=== PATIENT | female | born 1985 | race Caucasian/White ===

== ENCOUNTER 2020-12-03 12:58 | Outpatient (REF) | payer SELFPAY ==
[2020-12-03 16:06] LABS: Syphilis Screen Nonreactive (Nonreactive)
[2020-12-04 05:00] LABS: HIV AB/AG Nonreactive (Nonreactive); HIV Num 1 0.23 S/CO (0.00-0.99)
[2020-12-04 05:08] LABS: HBsAGNum1 0.14 S/CO (0.00-0.99); Hepatitis B Surface Antigen Negative (Negative); ~HepC Num1 0.17 S/CO (0.00-0.79); ~Hepatitis C Antibody Nonreactive (Nonreactive)
[2020-12-04 14:17] LABS: C. trachomatis RNA TMA NOT DETECTED (NOT DETECTED); N. gonorrhoeae RNA TMA NOT DETECTED (NOT DETECTED)
== END 2020-12-03 12:59 | disposition home or self-care (01) ==
LOC: HO.LAB 12:58
PROVIDERS: PCP Nurse Practitioner Family; Visit Provider Advanced Practice Midwife
DX: Z01.419 Encounter for gynecological examination (general) (routine) without abnormal findings (principal); Z20.2 Contact with and (suspected) exposure to infections with a predominantly sexual mode of transmission
CPT/HCPCS: 36415; 86780; 86803; 87340; 87389; 87491; 87591

== ENCOUNTER 2021-07-11 14:31 | Emergency (ER) | payer OTHER, SELFPAY ==
[2021-07-11 14:58] VITALS: BP 127/70; PULSE 81; RESP 18; TEMP 36.8; O2SAT 100; BMI 37.8
[2021-07-11 15:52] LABS: COVID-19 Test Negative (Negative)
--- NOTE | 2021-07-11 16:42 | ED_ITS ---
HPI - General Adult General Chief complaint: Upper Respiratory Symptoms Stated complaint: flu like symptoms Time Seen by Provider: 07/11/21 16:42 Source: patient Limitations: no limitations History of Present Illness HPI narrative: Patient presents with a 2 day history of body aches cough congestion. Patient received her 1st vaccination for COVID-19 3 weeks prior was scheduled to get her 2nd dose today but with symptoms did not get it in at this time. 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 Patient denies Tobacco history does have a history of asthma no recent travel history nausea vomiting chest pain. Cough is nonproductive. Lots of nasal congestion. Related Data Previous Rx's Medication Instructions Recorded albuterol sulfate 90 mcg/actuation 2 puff INHALATION Q6H PRN #6.7 g 07/11/21 aerosol inhaler (ProAir HFA) Allergies Allergy/AdvReac Type Severity Reaction Status Date / Time No Known Allergies Allergy Verified 07/11/21 14:58 Review of Systems Constitutional: Constitutional: Reports body ache(s), Denies chills, Denies fever(s), Denies headache(s) and Reports malaise ENT: Denies headache(s), Reports nasal congestion, Reports nasal discharge and Reports sore throat Cardiovascular: Cardiovascular: Denies chest pain and Denies dyspnea Respiratory: Respiratory: Denies dyspnea Gastrointestinal: Gastrointestinal: Denies diarrhea, Denies nausea and Denies vomiting Musculoskeletal: Musculoskeletal: Reports no additional musculoskeletal complaints Integumentary/Breasts: Skin/Breast: Denies rash Neurologic: Denies headache(s) [facility] Past Medical History Attestation statement: The following information was validated with the patient. Medical History Abnormal Pap smear of cervix Asthma Surgical History H/O hand surgery History of loop electrical excision procedure (LEEP) Family History Family History Father Colon cancer Maternal Grandmother History of breast cancer Social History Social History Alcohol intake: current Alcohol intake frequency: a few times a month Advance Directives: No Advance Directives Information Provided: No Patient : No Sexual orientation: Straight/Heterosexual Physical Exam Vital Signs: Vital Signs: Last Vital Signs Temp 98.2 F 07/11/21 14:58 Pulse 81 07/11/21 14:58 Resp 18 07/11/21 14:58 BP 127/70 07/11/21 14:58 Pulse Ox 100 07/11/21 14:58 Body Mass Index 37.8 vital signs have been reviewed as normal and appeared to be correct. Blood pressure normal. Heart rate normal. Respiration rate normal. Temperature normal. Oxygen saturation normal. Appearance: Alert. Oriented X3. No acute distress. Head: Normal external exam. Normocephalic. Atraumatic. Eyes: PERRLA. EOMI. Conjunctiva and sclera normal ENT: Pharynx normal. Uvula midline. Moist mucous membranes. Neck: Soft full range of motion, no JVD CVS: Heart regular rate and rhythm no murmurs and rubs Respiratory: Breath sounds are clear to auscultation bilaterally. No accessory muscle use noted. Abdomen: Soft nontender no rebound or guarding positive bowel sounds Back:Full range of motion noted. Skin: Skin warm and dry. Normal skin color. No rashes noted Extremities: No lower extremity edema. Extremities exhibit normal range of motion. Extremities nontender. Neuro: Oriented X 3. No motor deficit. No sensory deficit. Reflexes normal. Course Course Course Narrative: COVID-19 URI Viral syndrome COVID-19 screening Pharyngitis COVID-19 swab obtained is negative at this time O2 sat is 100% on room air patient instructed that this is not a PCR test and she may need to be retested in 2-3 days if symptoms continue. Symptoms likely secondary to viral URI. Medical Decision Making Lab Data Labs: Lab Results 07/11/21 Range/Units 15:29 COVID-19 ([place]) Negative (Negative) COVID-19 Clin Com See Note Discharge Plan Discharge Clinical Impression: Upper respiratory infection Qualifiers: URI type: unspecified viral URI Qualified Code(s): J06.9 - Acute upper respi ratory infection, unspecified Patient Disposition: Home, Self-Care Instructions: Upper Respiratory Infection (ED) Additional Instructions: If Symptoms continue in 2-3 days it is advised to get a PCR COVID-19 test Increase fluids rest Follow-up with your PCP Prescriptions: New albuterol sulfate [ProAir HFA] 90 mcg/actuation HFA aerosol inhaler 2 puff inhalation Q6H PRN (Reason: shortness of breath or wheezing) Qty: 6.7 RF: 0 Stand Alone Forms: Work/School Release
== END 2021-07-11 17:23 | disposition home or self-care (01) ==
PROVIDERS: Emergency Provider Emergency Medicine Emergency Medical Services; PCP Nurse Practitioner Family
DX: J06.9 Acute upper respiratory infection, unspecified (principal); M79.10 Myalgia, unspecified site; R05 Cough; Z20.822 Contact with and (suspected) exposure to COVID-19; Z79.899 Other long term (current) drug therapy
CPT/HCPCS: 36415; 87635; 99283

== ENCOUNTER 2025-04-30 20:54 | Emergency (ER) | payer OTHER, SELFPAY ==
--- NOTE | ~2025-04-30 | XR_ITS ---
CLINICAL HISTORY: pain injury 3 view bilateral ankles Comparison: None provided Findings: Small avulsion fracture at the tip of the right medial malleolus which is of indeterminate age. Otherwise no right ankle acute fractures. No acute fractures of left ankle. No dislocation bilaterally. No significant degenerative changes or erosions. Left plantar calcaneal enthesophyte. Bilateral ankle soft tissue swelling. No ankle joint effusion. IMPRESSION: 1. Small avulsion fracture at tip of right medial malleolus which is of indeterminate age. 2. Otherwise no fractures and no dislocation. This document has been electronically signed by: Corie Webb MD on 04/30/2025 23:11:14
[2025-04-30 21:53] VITALS: BP 144/67; PULSE 83; RESP 18; TEMP 36.7; O2SAT 99; BMI 420.3
--- NOTE | 2025-05-01 00:48 | ED_ITS ---
HPI - General Adult General Chief complaint: Extremity Injury, Lower Stated complaint: foot pain possible fracture Time Seen by Provider: 05/01/25 00:47 Source: patient Mode of arrival: ambulatory Limitations: no limitations History of Present Illness ED Provider: Tiffanie Fajardo PA-C HPI narrative: Patient is a 39 year old assigned female at with a history of asthma presenting to the emergency department today with bilateral ankle swelling / pain and left heel pain. Patient states that whenever she steps on her left heel she has pain that radiates into her left foot and into her lower leg. Patient states that she works on her feet all day and is now also having right ankle pain / swelling. Patient denies any dizziness, lightheadedness, abdominal pain, nausea, vomiting, fever, chills, blurry vision, double vision, loss of vision, chest pain, difficulty breathing, shortness of breath, back pain, night sweats, pain with urination, increased urinary frequency, increased urinary urgency, blood in her urine or stool, syncope or a near syncopal episode, recent trauma or falls, bowel incontinence, bladder incontinence, or any other complaints at this time. Relieving factors: none Exacerbating factors: none Associated symptoms: denies other symptoms Treatments prior to arrival: none Related Data Previous Rx's ?Medication ?Instructions ?Recorded albuterol sulfate 90 mcg/actuation 2 puff inhalation Q 6H PRN 07/11/21 aerosol inhaler (ProAir HFA) shortness of breath or wh eezing #6.7 grams ketorolac 10 mg tablet 10 mg PO Q8H PRN pain 4 days #10 05/01/25 tabs Allergies Allergy/AdvReac Type Severity Reaction Status Date / Time No Known Allergies Allergy Verified 04/30/25 21:56 Review of Systems Constitutional: Constitutional: Reports no additional constitutional complaints, Denies chills, Denies fever(s) and Denies night sweats Eyes: Eyes: Reports no additional eye complaints, Denies blurry vision, Denies change in vision, Denies diplopia, Denies eye discharge, Denies loss of vision and Denies eye pain ENT: Denies dizziness Cardiovascular: Cardiovascular: Reports no additional cardiovascular complaints, Denies chest pain, Denies lightheadedness, Denies Loss of Consciousness and Denies dyspnea Respiratory: Respiratory: Reports no additional respiratory complaints and Denies dyspnea Gastrointestinal: Gastrointestinal: Reports no additional gastrointestinal complaints, Denies abdominal pain, Denies melena, Denies hematochezia, Denies change in bowel habits and Denies change in stool character Genitourinary: Genitourinary: Denies hematuria, Denies urinary frequency, Denies dysuria, Denies urinary incontinence, Denies urinary hesitancy and Denies urinary urgency Musculoskeletal: Musculoskeletal: Reports no additional musculoskeletal complaints, Denies numbness and Denies tingling Comments: Right ankle pain / swelling Left ankle pain / swelling Left heel pain Neurologic: Denies dizziness, Denies loss of vision, Denies numbness and Denies tingling Psychiatric: Psychiatric: Reports no additional psychiatric complaints Endocrine: Endocrine: Reports no additional endocrine complaints Hematologic/Lymphatic: Hematologic/Lymphatic: Reports no additional hematologic/lymphatic complaints Allergic/Immunologic: Allergic/Immunologic: Reports no additional allergic/immunologic complaints PMF Past Medical History Attestation statement: The following information was validated with the patient. Source: old records reviewed and nursing notes reviewed Medical History Asthma Abnormal Pap smear of cervix Surgical History H/O hand surgery History of loop electrical excision procedure (LEEP) Family History Family History Father Colon cancer Maternal Grandmother History of breast cancer Social History Social History Alcohol intake: current Alcohol intake frequency: a few times a month Advance Directives: No Advance Directives Information Provided: No Do you have a plan to hurt others: No Plan Sexual orientation: Straight/Heterosexual Physical Exam ED Vital Signs: Vital Signs - 24 hr 04/30/25 21:53 Temperature 98.1 F Pulse Rate 83 Respiratory Rate 18 Blood Pressure 144/67 H Pulse Oximetry 99 Oxygen Delivery Method Room Air BMI result Body Mass Index 420.3 Const General: cooperative, no acute distress, alert and awake Nutritional Appearance: well nourished Orientation/consciousness: patient oriented x3 HENMT Head: Yes normal to inspection and Yes atraumatic Ears: hearing grossly normal bilaterally and external ears normal General nose exam: Normal external nose present, no nasal discharge noted and no epistaxis Face and sinus: Yes normal facial exam, No abrasion and No laceration Mouth: Normal oral and palatal mucosa present, no drooling and no muffled voice Eyes General: appearance normal, both eyes and all related structures Periorbital: periorbital findings normal Eyelids: Yes eyelids normal Conjunctivae: conjunctivae normal Pupils: Equal, round and reactive pupils present EOM: EOMs intact bilaterally Neck Neck: Yes normal visual inspection, Yes full ROM and Yes no lymphadenopathy Resp Effort & Inspection: normal respiratory effort and able to speak in complete sentences Neuro General: patient oriented x3, moves all extremities and CN's II-XI intact bilaterally Cranial nerves: Yes Equal, round and reactive pupils present Cognition (Neuro): normal cognition Extrem Other: Bilateral ankle swelling Pain with palpation of the left heel General: Yes full ROM and Yes capillary refill normal Psych Appearance: grossly normal Mental Status: mental status grossly normal Affect: normal affect Attitude: cooperative Thought process: Normal thought process present Thought content: Normal thought content present Insight: Good insight present (Psych) Medications Administered Discontinued Medications Generic Name Dose Route Start Last Admin Trade Name Mara PRN Reason Stop Dose Admin Ketorolac Tromethamine 15 mg 05/01/25 01:00 05/01/25 01:29 Ketorolac Tromethamine 15 Mg/Ml Vial IM 05/01/25 01:01 15 mg ONCE ONE Administration Procedures Orthopedic Splinting/Casting Injury #1: Side: right Lower Extremity Injury Location: ankle Lower Extremity Immobilizer: boot orthosis Injury #2: Side: left Lower Extremity Injury Location: foot Lower Extremity Immobilizer: boot orthosis Medical Decision Making Medical Decision Making MDM Narrative: Patient is a 39 year old assigned female at with a history of asthma presenting to the emergency department today with bilateral ankle swelling / pain and left heel pain. Patient's physical exam was as noted in the physical exam portion of this note. Patient's bilateral ankle x-rays showed a right medial malleolus ankle fracture of undetermined age and the left was negative for any acute process. I am suspicious the right avulsion fx is old and found incidentally given her new swelling however, given the findings and her pain, w ill place her in a tall walking boot. Patient's left heel pain is most consistent with plantar fasciitis for which I will also place that foot in a walking boot. I explained my physical exam findings as well as all test results to the patient. I answered all questions asked by the patient. Patient's right foot was placed in a tall walking boot, per procedure note, without incident. Patient's left foot was placed in a short walking boot, per procedure note, without incident. Patient was given IM Toradol. Patient was originally prescribed naproxen however, she stated that she did not want that and would rather have PO Toradol. I stressed the importance of the patient taking her medication as directed (either prescribed or as the over the counter packaging recommends). I stressed the importance of the patient following up with her primary care provider and the orthopaedic team. I stressed the importance of the patient returning to the emergency department immediately if her symptoms were to worsen or if she were to develop any dizziness, shortness of breath, difficulty breathing, chest pain, blurry vision, loss of vision, nausea, vomiting, abdominal pain, fever, chills, back pain, or any other complaints. Patient verbalized agreement and understanding with this treatment plan and discharge. Differential Diagnosis Differential Diagnoses: The differential diagnosis associated with the presentation includes Right avulsion fracture of the ankle Left plantar fasciitis Bilateral ankle swelling Bilateral ankle pain Admission/Observation Consideration of admission/observation: Escalation of care including admission/observation considered Patient would have been admitted to the hospital had her work up had any findings where hospital admission was appropriate and her clinical presentation warranted hospital admission. Independent Interpretation I performed an independent interpretation of an: Plain X-Ray Interpretation: My interpretation is in agreement with the radiologist's impression of these imaging studies. CLINICAL HISTORY: pain injury 3 view bilateral ankles Comparison: None provided Findings: Small avulsion fracture at the tip of the right medial malleolus which is of indeterminate age. Otherwise no right ankle acute fractures. No acute fractures of left ankle. No dislocation bilaterally. No significant degenerative changes or erosions. Left plantar calcaneal enthesophyte. Bilateral ankle soft tissue swelling. No ankle joint effusion. IMPRESSION: 1. Small avulsion fracture at tip of right medial malleolus which is of indeterminate age. 2. Otherwise no fractures and no dislocation. This document has been electronically signed by: Corie Webb MD on 04/30/2025 23:11:14 Dictated By: Corie Webb MD Signed By: Electronically signed by Corie Webb MD 04/30/25 [id number] Radiology Impression Discussion of test interpretation with radiology: I have reviewed the radiologist's reading. Prescription Management I considered prescription management with: Pain Medication (patient prescribed pain medication) Discharge Plan Discharge Clinical Impression: Plantar fasciitis, Ankle fracture Patient Disposition: Home, Self-Care Instructions: Ankle Fracture (DC), Plantar Fasciitis (ED), Plantar Fasciitis Exercises (ED) Additional Instructions: Your left foot is suffering from plantar fasciitis and while evaluating your right ankle we found a small (likely old) avulsion fracture / break. I've provided you with walking boots for comfort. Follow up with your primary care provider and the orthopedic team. Return to the emergency department immediately if your symptoms worsen or if you develop any numbness, tingling, dizziness, shortness of breath, difficulty breathing, chest pain, blurry vision, loss of vision, nausea, vomiting, abdominal pain, fever, chills, back pain, or any other complaints. Please see the information below about our Patient Portal. If you are not yet enrolled in the [facility] Patient Portal, you will receive an enrollment email invitation following your visit to any [facility] setting. You may also self-enroll in the Patient Portal by visiting our website: [email or web address] The following information is required to access the Patient Portal: - Your [facility] Medical Record Number - Your personal home email address (must match what is in your electronic medical record, Registration staff can assist with this) - Name - Date of Capabilities of the Patient Portal: - Message some providers - View upcoming appointments - Access your health summary, medical history, and visit history - View current conditions and allergies - View procedure and lab results - View your medications, including guidelines, side effects, and precautions - Complete pre-appointment questionnaires requested by your provider - Ready summary reports of your office visits and procedures To access the Patient Portal Mobile Julio, follow these directions: - Search [employer] in the Julio Store or Google Play Store - Download the Julio - Search for [facility] - Enter your login/password Prescriptions: New ketorolac 10 mg tablet 10 mg PO Q8H PRN (Reason: pain) 4 Days Qty: 10 0RF Rx Instructions: DO NOT TAKE THIS MEDICATION WITH OTHER NSAIDS SUCH IBUPROFEN / MOTRIN / ALEVE / OR NAPROXEN No Action albuterol sulfate [ProAir HFA] 90 mcg/actuation HFA aerosol inhaler 2 puff inhalation Q6H PRN (Reason: shortness of breath or wheezing) Qty: 6.7 0RF Referrals: [facility] Orthopedic Surgeons [Provider Group] Referral Note: Call to establish and follow up with the orthopedic team. Caro Alicia NP [Primary Care Provider, Medical] Stand Alone Forms: Work/School Release Print Language: Pakistani
[2025-05-01] MEDS: Ketorolac Tromethamine 15 MG/ML VIAL IM (01:29)
[2025-05-01 05:49] VITALS: BP 144/67; PULSE 83; RESP 18; TEMP 36.7; O2SAT 99
== END 2025-05-01 01:45 | disposition home or self-care (01) ==
PROVIDERS: Emergency Provider Emergency Medicine Emergency Medical Services; PCP Nurse Practitioner Family
DX: S82.892A Other fracture of left lower leg, initial encounter for closed fracture (principal); M72.2 Plantar fascial fibromatosis; M25.572 Pain in left ankle and joints of left foot; M25.571 Pain in right ankle and joints of right foot; X58.XXXA Exposure to other specified factors, initial encounter; Y93.9 Activity, unspecified; Y92.9 Unspecified place or not applicable; Y99.8 Other external cause status
CPT/HCPCS: 29515; 73610; 96372; 99283; 99284; J1885

== ENCOUNTER → 2025-04-30 21:12 | Outpatient (BNV) | payer SELFPAY | PROVIDERS: PCP Nurse Practitioner Family; Visit Provider Specialist | DX: S82.51XA Displaced fracture of medial malleolus of right tibia, initial encounter for closed fracture (principal) | CPT/HCPCS: 73610 ==

== ENCOUNTER 2025-05-16 08:04 | Outpatient (REF) | payer OTHER, SELFPAY ==
--- NOTE | ~2025-05-16 | XR_ITS ---
CLINICAL HISTORY: M25.571 - Pain in right ankle and joints of right foot 2 view right ankle Comparison: CR - XR ANKLE RADHA MIN 3V - 04/30/25 22:12 EDT Findings: There is an ossific body adjacent to the distal tip of the medial malleolus without change. No acute fracture. No dislocation. No significant loss of joint space, osteophytes, or erosions. No ankle effusion. No radiopaque foreign body. IMPRESSION: 1. No acute findings. This document has been electronically signed by: Brandi Cabral MD on 05/17/2025 16:28:04
--- OUTSIDE RECORDS SUMMARY | 2025-05-16 08:08 | XMS_ITS | Clinical Summary ---
Author Organization [employer] Address [address] [place] [address] Care Team Providers Care Pharmacoepidemiologist Name Role Phone Reid Tellezabel SIDE PANEL [employer]ER Primary Care Provider Unavail able Social History Tobacco Use Types Packs/Day Years Used Date Smoking Tobacco: Never Assessed Comments Unknown Sex and Gender Information Value Date Recorded Sex Assigned at Female 09/08/2022 10:14 AM EDT Legal Sex Female 10:14 AM EDT Gender Identity Not on file Sexual Orientation Lesbian or Brewer 09/08/2022 10 :14 AM EDT Plan of Treatment Health Maintenance Due Date Last Done Comments Depression Screening 1985 Disability Screening 1985 Alcohol/Substance Use Screening 1997 Tobacco Screening 1997 Family Planning (PISQ) 2000 DTaP/Tdap/Td Vaccines (1 - Tdap) 2004 Hepatitis B Vaccines (1 of 3 - 19+ 3-dose series) 2004 Pap Smear 2006 Cervical Cancer Screening 2015 HPV/Cotest 2015 COVID-19 Vaccine ( - 2023-2 5 season) 2024 Influenza Vaccine (#1) 2025 Zoster Vaccines (1 of 2) 2035 RSV Patients and Pa tients Aged 60 years or older (1 - 1-dose 75+ series) 2060 HIB Vaccines Aged Out No longer eligi ble based on patient's age to complete this topic HPV Vaccines Aged Out No longer eligi ble based on patient's age to complete this topic Hepatitis A Vaccines Aged Out No long er eligible based on patient's age to complete this topic IPV Vaccines Aged Out No longer eligi ble based on patient's age to complete this topic Meningococcal B Vaccine Aged Out No l onger eligible based on patient's age to complete this topic Meningococcal Vaccine Aged Out No mina lang eligible based on patient's age to complete this topic Pneumococcal Vaccine: Pediat rics (0 to 5 Years) and At-Risk Patients (6 to 49) Years Aged Out No longer eligible b ased on patient's age to complete this topic RSV under 20 months Aged Out No longe r eligible based on patient's age to complete this topic Rotavirus Vaccines Aged Out No longer eligible based on patient's age to complete this topic Care Teams Pharmacoepidemiologist Relationship Specialty Start Date End Date Adriana Tellez FNP PCP - General Family Medicine 05/14/21
== END 2025-05-16 08:05 | disposition home or self-care (01) ==
LOC: HO.HOSX 08:04
DX: M72.2 Plantar fascial fibromatosis (principal); M25.571 Pain in right ankle and joints of right foot
CPT/HCPCS: 73610; 99202

== ENCOUNTER 2025-05-16 09:15 | Outpatient (AMB) | payer OTHER, SELFPAY ==
--- NOTE | 2025-05-16 09:22 | MHC.OFFVIS ---
Vital Signs 05/16/25 09:23 Height 5 ft 1 in Weight 220 lb BMI 41.6 Intake Visit Reasons: ED- Right Ankle fracture Intake Note: Jose is a 39 year old female who presents today for an emergency department follow up for her right ankle. Patient stated that she was seen for her left ankle at the ER but at that visit she found out that her right ankle has a fracture. She reports that about two to three months she fell back on a hill and felt a discomfort in both ankles. Patient stated that she works two jobs and didn't feel like she needed to seek treatment. Patient reports that she tried ice/heat and elevates b/l ankles, mild relief. She states Numbness and tingling with swelling. Your left foot is suffering from plantar fasciitis and while evaluating your right ankle we found a small (likely old) avulsion fracture / break. I've provided you with walking boots for comfort. Allergies No Known Allergies Allergy (Verified 05/16/25 09:30) PFSH Medical History Asthma Abnormal Pap smear of cervix Surgical History H/O hand surgery History of loop electrical excision procedure (LEEP) Family History Father Colon cancer Maternal Grandmother History of breast cancer Social History (Updated 05/16/25 @ 09:28 by Disha Soler) Alcohol intake: current Alcohol intake frequency: a few times a month Current occupational status: employed Current occupation: [employer] division of [employer]. 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 Sexual orientation: Straight/Heterosexual Female Reproductive History Menstrual Age of Menarche: 9 Physical Exam Vital Signs: BMI result Body Mass Index 41.6 Assessment & Plan Assessment & Plan (1) Plantar fasciitis, bilateral: Code(s): M72.2 - Plantar fascial fibromatosis Category: Medical Plan History of Present Illness The patient is a 39-year-old female presenting with pain in both feet, primarily concerning a suspected fracture in the right ankle and chronic pain in the left foot. 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 Swelling in the right ankle is due to compensatory overuse from avoiding weight on the left foot per the patient. The left foot has been painful for approximately three months, with significant calcaneal spurring noted on x-rays, leading to a diagnosis of plantar fasciitis. The pain in the left foot has progressively worsened, impacting the patient's ability to work an eight-hour shift. The patient has attempted various interventions, including nightly foot massages and wearing different types of sneakers, but continues to experience significant discomfort. Review of Systems - Musculoskeletal: Reports pain in both feet, swelling in the right ankle, and significant discomfort in the left foot for three months. Systems reviewed and are negative except as per HPI and below Physical Exam - Musculoskeletal: Examination of the left foot showed no tenderness upon palpation, but pain was noted when stretching the plantar fascia. - Musculoskeletal: Range of motion in the feet was noted to be Full and intact, with significant pain with dorsiflexion on the plantar aspect of the foot near the calcaneus Results - Imaging: X-rays show a nonunion fracture in the right ankle and significant calcaneal spurring in the left foot. Procedure Plan The patient was advised that no acute intervention is necessary for the nonunion fracture of the right ankle as it is well ossified. For the bilateral plantar fasciitis with calcaneal spurring, the patient was recommended to wear supportive footwear, such as Hoka sneakers, and consider shoe inserts to alleviate discomfort. A referral to [facility] for foot and ankle surgery was placed to explore further treatment options for the plantar fasciitis. Conservative pain management measures, including rest, ice, elevation, and the use of Tylenol or ibuprofen as needed, were also recommended. Patient was informed and verbally consented to the use of an ambient scribe for clinic note documentation during this visit. Discussion Notes I discussed with the patient that the nonunion fracture of the right ankle does not require acute intervention as it is well ossified and does not causing the patient any symptoms. For the plantar fasciitis, I recommended supportive footwear and shoe inserts, and placed a referral to [facility] for further evaluation by foot and ankle surgery. I advised conservative pain management measures, including rest, ice, elevation, and the use of Tylenol or ibuprofen as needed. Patient Instructions - Wear supportive footwear, such as Hoka sneakers, and consider shoe inserts. - Follow up with [facility] for foot and ankle surgery as referred. - Use conservative pain management measures: rest, ice, elevation, and take Tylenol or ibuprofen as needed. Orders: Orders XR ankle RT min 3V Today M25.571 - Pain in right ankle and joints of right foot Referrals Orthopedics Referral M72.2 - Plantar fascial fibromatosis Coding Level of Care Code New Pt Level 3 (95851) Diagnoses Plantar fasciitis, bilateral M72.2
[2025-05-16 09:23] VITALS: BMI 41.6
== END 2025-05-16 10:12 | disposition home or self-care (01) ==
LOC: HO.HOS 09:16
PROVIDERS: PCP Nurse Practitioner Family
DX: M72.2 Plantar fascial fibromatosis (principal)
CPT/HCPCS: 99203

== ENCOUNTER → 2025-05-16 09:18 | Outpatient (BNV) | payer OTHER, SELFPAY | PROVIDERS: Visit Provider Radiology Diagnostic Radiology | DX: M25.571 Pain in right ankle and joints of right foot (principal) | CPT/HCPCS: 73610 ==